=== PATIENT | male | born 1950 | race Caucasian/White ===

== ENCOUNTER → 2017-11-17 | Outpatient (CLI) | payer MEDICARE | END | disposition home or self-care (01) | LOC: CFH 09:17 | PROVIDERS: ATTEND Internal Medicine Cardiovascular Disease | DX: I34.0 Nonrheumatic mitral (valve) insufficiency (principal); I51.7 Cardiomegaly; Z87.891 Personal history of nicotine dependence | CPT/HCPCS: 93306 ==

== ENCOUNTER → 2018-01-12 | Outpatient (CLI) | payer MEDICARE ==
[~2018-01-12] MED LIST: REGADENOSON 0.4 MG/5 ML SYRINGE ONE
== END | disposition home or self-care (01) ==
LOC: RAD 07:39
PROVIDERS: ATTEND Internal Medicine Cardiovascular Disease
DX: R07.89 Other chest pain (principal)
CPT/HCPCS: 78452; 93017; A9502; J2785

== ENCOUNTER 2018-01-28 17:45 | Emergency (ER) | payer MEDICARE ==
[~2018-01-28] VITALS: Ht 182.9 cm; Wt 88.7 kg
[2018-01-28 17:59] VITALS: BP 160/91
[2018-01-28] MEDS ORDERED: PLEASE ENTER ALLERGIES MC SCH (18:30)
[2018-01-28] MEDS ORDERED: OXYcodone/APAP 7.5/325MG TABLET PO ONE (18:30)
[2018-01-28] MEDS ORDERED: TAMS0.4C2 PO (18:45)
[2018-01-28] MEDS ORDERED: FINA1TAB16 PO (18:45)
[2018-01-28] MEDS ORDERED: UMEC62.5 INH (18:46)
[2018-01-28] MEDS ORDERED: IBUPROFEN 200 MG TABLET PO ONE (19:00)
[2018-01-28] MEDS ORDERED: IBUPROFEN 200 MG TABLET ONE (19:05)
== END 2018-01-28 19:42 | disposition home or self-care (01) ==
LOC: ED 19:30
DX: S62.012A Displaced fracture of distal pole of navicular [scaphoid] bone of left wrist, initial encounter for closed fracture (principal); W01.0XXA Fall on same level from slipping, tripping and stumbling without subsequent striking against object, initial encounter; Y93.89 Activity, other specified; Y92.009 Unspecified place in unspecified non-institutional (private) residence as the place of occurrence of the external cause; Y99.8 Other external cause status
CPT/HCPCS: 29125; 99284

== ENCOUNTER → 2018-05-30 | Outpatient (CLI) | payer MEDICARE ==
[~2018-05-30] MED LIST changes: +FINA1TAB16 PO; -REGADENOSON 0.4 MG/5 ML SYRINGE ONE; +TAMS0.4C2 PO; +UMEC62.5 INH
== END | disposition home or self-care (01) ==
LOC: CFH 15:43
PROVIDERS: ATTEND Internal Medicine
DX: J43.2 Centrilobular emphysema (principal); R91.8 Other nonspecific abnormal finding of lung field; I25.10 Atherosclerotic heart disease of native coronary artery without angina pectoris; M41.84 Other forms of scoliosis, thoracic region; M48.54XA Collapsed vertebra, not elsewhere classified, thoracic region, initial encounter for fracture
CPT/HCPCS: 71250

== ENCOUNTER → 2019-04-02 | Outpatient (CLI) | payer MEDICARE | END | disposition home or self-care (01) | LOC: RAD 10:17 → EDSTATUS 11:00 | PROVIDERS: ATTEND Nurse Practitioner | DX: J43.2 Centrilobular emphysema (principal); M48.54XA Collapsed vertebra, not elsewhere classified, thoracic region, initial encounter for fracture; M85.88 Other specified disorders of bone density and structure, other site; M41.84 Other forms of scoliosis, thoracic region; R91.8 Other nonspecific abnormal finding of lung field; I70.0 Atherosclerosis of aorta | CPT/HCPCS: 71250 ==

== ENCOUNTER 2019-09-17 15:02 | Inpatient (IN) | payer MEDICARE ==
[~2019-09-17] VITALS: Ht 172.7 cm; Wt 94.0 kg
[2019-09-17 15:48] LABS: BASOPHILS # (AUTO) 0.05 x10^3/uL (0-0.1); BASOPHILS % (AUTO) 1 % (0-1); EOSINOPHILS # (AUTO) 0.14 x10^3/uL (0-0.4); EOSINOPHILS % (AUTO) 2 % (1-7); LYMPHOCYTES # (AUTO) 1.37 x10^3/uL (1-3.4); LYMPHOCYTES % (AUTO) 16 % (22-44); MD NO; MEAN CORPUSCULAR HEMOGLOBIN 31.1 pg (27.5-34.5); MEAN CORPUSCULAR HGB CONC 33.9 g/dL (33.2-36.2); MEAN CORPUSCULAR VOLUME 91.8 fL (81-97); MEAN PLATELET VOLUME 8.4 fL (7.4-10.4); MONOCYTES # (AUTO) 0.58 x10^3/uL (0.2-0.8); MONOCYTES % (AUTO) 7 % (2-9); NEUTROPHILS # (AUTO) 6.35 x10^3/uL (1.8-6.8); NEUTROPHILS % (AUTO) 75 % (42-75); PLATELET COUNT 300 x10^3/uL (130-400); RED BLOOD COUNT 4.67 x10^6/uL (4.38-5.82)
[2019-09-17 15:56] LABS: ALANINE AMINOTRANSFERASE 19 U/L (12-78); ALBUMIN 3.4 g/dL (3.4-5.0); ANION GAP 5 mmol/L (5-15); CALCIUM 8.8 mg/dL (8.5-10.1); CHLORIDE 103 mmol/L (98-107); CREATININE 0.91 mg/dL (0.7-1.3)
--- NOTE | 2019-09-17 15:59 | NUR ---
PT HERE WITH C.O SOB X 2 WEEKS AND COUGH. PT STATES HX COPD AND EMPHYSEMA, WEARS HOME O2 3L NC AT NOC AND OCCASSIONALLY DURING DAY. PT STATES AT [employer] AND WAS TOLD TO COME HERE. PT AAO X 4, ON 5L NC TO MAINTAIN O2 SAT OF 92%. PT DRESSED IN GOWN AND ON ALL MONITORS. CALL LIGHT WITHIN REACH AND FAMILY AT BEDSIDE.
[2019-09-17 16:00] LABS: ALKALINE PHOSPHATASE 118 U/L (45-117); BILIRUBIN,TOTAL 0.6 mg/dL (0.2-1.0); TOTAL PROTEIN 6.5 g/dL (6.4-8.2); TROPONIN I < 0.015 ng/mL (0.000-0.045)
[2019-09-17] MEDS ORDERED: AZITHROMYCIN 500 MG in SODIUM CHLORIDE 0.9% 250 ML IVPB ONE (17:00)
[2019-09-17] MEDS ORDERED: SODIUM CHLORIDE FLUSH 10ML SYR IVF ONE (17:00)
[2019-09-17] MEDS ORDERED: CEFTRIAXONE PMX 1GM/50ML 50 ML IVPB ONE (17:00)
--- NOTE | 2019-09-17 17:16 | NUR ---
PIV ESTABLISHED, BLOOD CX X 2 DRAWN AND SENT.
--- NOTE | 2019-09-17 17:26 | NUR ---
REPORT GIVEN TO JENNIE MILTON. PT TO TRANSFER TO INPATIENT STATUS.
[2019-09-17] MEDS ORDERED: POLYETHYLENE GLYCOL 17 GM PACKET PO PRN (17:30)
[2019-09-17] MEDS ORDERED: BISACODYL 10 MG SUPP PR PRN (17:30)
[2019-09-17] MEDS ORDERED: DOCUSATE 100 MG CAPSULE PO PRN (17:30)
[2019-09-17] MEDS ORDERED: CEFTRIAXONE PMX 1GM/50ML 50 ML ONE (17:30)
[2019-09-17] MEDS ORDERED: ACETAMINOPHEN 325 MG TABLET PO PRN (17:30)
--- NOTE | 2019-09-17 17:34 | NUR ---
MEDICATED PER EMAR (ROCEPHIN VIA GRAVITY, THEN WITH HANG AZITHROMYCIN VIA OPTIFLOW)
--- NOTE | 2019-09-17 17:42 | NUR ---
NARAYAN COMPLATE AT 1742, CHEKO BARONE ADMINISTERED PER EMAR
--- NOTE | 2019-09-17 17:44 | NUR ---
AZITHRO INFUSING (BUT HELD AT TIME OF TRANSFER)
[2019-09-17] MEDS ORDERED: SODIUM CHLORIDE FLUSH 10ML SYR IVF PRN (18:00)
[2019-09-17] MEDS: ENOXAPARIN 40 MG/0.4 ML SQ SCH (18:00)
[2019-09-17 18:09] VITALS: BP 150/83
[2019-09-17] MEDS: methylPREDNISolone SOD SUCC 125 MG/2 ML IVPush SCH (18:24)
[2019-09-17] MEDS: SODIUM CHLORIDE 0.9% 1,000 ML IV SCH (18:24)
[2019-09-17 19:30] VITALS: BP 123/73
[2019-09-17] MEDS ORDERED: ALBUTEROL SULFATE 2.5 MG/3 ML ONE (19:40)
[2019-09-17] MEDS ORDERED: GUAIFENESIN/DM 200-20MG, 10ML UDC ONE (20:41)
[2019-09-17 20:48] VITALS: BP 150/83
[2019-09-17] MEDS: GUAIFENESIN/DM 200-20MG, 10ML UDC PO PRN (20:59)
[2019-09-18] MEDS: methylPREDNISolone SOD SUCC 125 MG/2 ML IVPush SCH ×3 (00:14→11:16)
[2019-09-18] MEDS ORDERED: MELATONIN 5 MG TABLET ONE (00:32)
[2019-09-18] MEDS: MELATONIN 5 MG TABLET PO PRN (00:33)
[2019-09-18 03:48] VITALS: BP 130/69
[2019-09-18 05:40] LABS: BASOPHILS % (AUTO) 0 % (0-1); EOSINOPHILS % (AUTO) 0 % (1-7); LYMPHOCYTES # (AUTO) 0.72 x10^3/uL (1-3.4); LYMPHOCYTES % (AUTO) 7 % (22-44); MD NO; MEAN CORPUSCULAR HEMOGLOBIN 30.2 pg (27.5-34.5); MEAN CORPUSCULAR HGB CONC 32.2 g/dL (33.2-36.2); MEAN CORPUSCULAR VOLUME 93.9 fL (81-97); MEAN PLATELET VOLUME 8.4 fL (7.4-10.4); MONOCYTES # (AUTO) 0.02 x10^3/uL (0.2-0.8); MONOCYTES % (AUTO) 0 % (2-9); NEUTROPHILS # (AUTO) 10.04 x10^3/uL (1.8-6.8); NEUTROPHILS % (AUTO) 93 % (42-75); PLATELET COUNT 292 x10^3/uL (130-400); RED BLOOD COUNT 4.66 x10^6/uL (4.38-5.82); RED CELL DISTRIBUTION WIDTH 16.4 % (9.4-14.8)
[2019-09-18 05:42] LABS: ALBUMIN 3.3 g/dL (3.4-5.0); ANION GAP 2 mmol/L (5-15); CALCIUM 8.5 mg/dL (8.5-10.1); CHLORIDE 105 mmol/L (98-107)
[2019-09-18 05:56] LABS: ALANINE AMINOTRANSFERASE 17 U/L (12-78); ALKALINE PHOSPHATASE 109 U/L (45-117); BILIRUBIN,TOTAL 0.4 mg/dL (0.2-1.0); CREATININE 0.68 mg/dL (0.7-1.3); TOTAL PROTEIN 6.3 g/dL (6.4-8.2)
[2019-09-18] MEDS: ALBUTEROL SULFATE 2.5 MG/3 ML NPPB SCH ×3 (07:15→21:00)
[2019-09-18] MEDS: SODIUM CHLORIDE 0.9% 1,000 ML IV SCH (08:10)
[2019-09-18 10:20] VITALS: BP 132/76
[2019-09-18] MEDS: NICOTINE 14MG/24 HR PATCH.TD24 TD SCH (11:16)
[2019-09-18] MEDS: GUAIFENESIN/DM 200-20MG, 10ML UDC PO PRN (11:16)
[2019-09-18 12:25] VITALS: BP 130/72
[2019-09-18] MEDS ORDERED: CEFTRIAXONE PMX 1GM/50ML 50 ML IV SCH (17:00)
[2019-09-18] MEDS ORDERED: AZITHROMYCIN 500 MG in SODIUM CHLORIDE 0.9% 250 ML IV SCH (18:00)
[2019-09-18] MEDS: ENOXAPARIN 40 MG/0.4 ML SQ SCH (18:00)
[2019-09-18 18:58] VITALS: BP 129/70
[2019-09-18] MEDS: DOCUSATE 100 MG CAPSULE PO SCH (19:34)
[2019-09-19] MEDS: MELATONIN 5 MG TABLET PO PRN (00:43)
[2019-09-19 01:16] VITALS: BP 144/71
[2019-09-19] MEDS: ENOXAPARIN 40 MG/0.4 ML SQ SCH (07:28)
[2019-09-19 07:55] VITALS: BP 158/84
[2019-09-19] MEDS ORDERED: METH4TAB2 PO (08:01)
[2019-09-19] MEDS ORDERED: AZIT500T10 PO (08:01)
[2019-09-19] MEDS ORDERED: GUAI1TBM11 PO (08:01)
[2019-09-19] MEDS ORDERED: CEFD300C37 PO (08:01)
[2019-09-19] MEDS ORDERED: NICO-485 TD (08:05)
[2019-09-19] MEDS ORDERED: NICO-486 TD (08:05)
[2019-09-19] MEDS: GUAIFENESIN/DM 200-20MG, 10ML UDC PO PRN (08:43)
[2019-09-19] MEDS: DOCUSATE 100 MG CAPSULE PO SCH (08:43)
[2019-09-19] MEDS: NICOTINE 14MG/24 HR PATCH.TD24 TD SCH (08:43)
[2019-09-19] MEDS: ALBUTEROL SULFATE 2.5 MG/3 ML NPPB SCH (09:45)
[2019-09-19] MEDS ORDERED: ALBUTEROL SULFATE 2.5 MG/3 ML NPPB SCH (10:30)
== END 2019-09-19 11:50 | disposition home or self-care (01) | DRG 193 ==
LOC: ED 16:48 → EDIP 16:49 → ED 17:18 → 3N 17:24 → DCLOUNGE 09-19 11:40
PROVIDERS: ADMIT Internal Medicine; ATTEND Hospitalist
DX: J15.9 Unspecified bacterial pneumonia (principal); J96.21 Acute and chronic respiratory failure with hypoxia; J43.9 Emphysema, unspecified; I25.2 Old myocardial infarction; Z72.0 Tobacco use; Z99.81 Dependence on supplemental oxygen
CPT/HCPCS: 36415; 71045; 80053; 83605; 83735; 83880; 84100; 84145; 84443; 84484; 85025; 87040; 93005; 94640; 99285; G0378; J0456; J0696; J7613; J2930; J7030; J7050; J7512

== ENCOUNTER → 2019-10-07 | Outpatient (CLI) | payer MEDICARE ==
[~2019-10-07] MED LIST changes: +AZIT500T10 PO; +CEFD300C37 PO; +GUAI1TBM11 PO; +METH4TAB2 PO; +NICO-485 TD; +NICO-486 TD
== END | disposition home or self-care (01) ==
LOC: CFH 10:37
PROVIDERS: ATTEND Nurse Practitioner
DX: Z12.2 Encounter for screening for malignant neoplasm of respiratory organs (principal); R91.8 Other nonspecific abnormal finding of lung field; F17.200 Nicotine dependence, unspecified, uncomplicated
CPT/HCPCS: G0297